=== PATIENT | male | born 1950 | race Caucasian/White ===

== ENCOUNTER → 2017-11-27 | Outpatient (CLI) | payer OTHER ==
[~2017-11-27] MED LIST: AMLODIPINE BESY10 MG PO; DICLOFENAC SOD50 M1 PO; LIPITOR 20 MG T20 M1 PO; MEDROLDOSEPACK PO; MICARDIS 20MG T20 M1 PO; NABUMETONE 500500 M1 PO; TELMISARTAN40 MG PO
[2017-11-27 11:03] LABS: HEMATOCRIT 39.3 % (42.0-52.0); HEMOGLOBIN 13.5 gm/dL (14.0-18.0); MCH 31.7 pg (26.0-34.0); MCHC 34.4 g/dL (28.0-37.0); MPV 7.5 fl. (7.2-11.1); RBC 4.27 mil/uL (4.50-6.00); RDW-CV 13.4 % (10.5-14.5); WBC 6.8 thou/uL (4.0-11.0)
[2017-11-27 11:16] LABS: ALBUMIN 4.3 g/dL (3.4-5.0); ALKALINE PHOSPHATASE 65 U/L (46-116); ANION GAP 9 mmol/L (7-16); BUN 13 mg/dL (7-18); CALCIUM 8.9 mg/dL (8.5-10.1); CHLORIDE 102 mmol/L (98-107); CHOLESTEROL 162 mg/dL (<200); CO2 30 mmol/L (21-32); CREATININE 0.9 mg/dL (0.6-1.3); GLUCOSE 93 mg/dL (70-99); HDL CHOLESTEROL 66 mg/dL (>40); LDL CHOLESTEROL 69 mg/dL (<100); POTASSIUM 4.1 mmol/L (3.5-5.1); SERUM ASSESSMENT Clear; SGOT 43 U/L (15-37); SGPT 62 U/L (30-65); SODIUM 141 mmol/L (136-145); TC:HDL 2.5 Ratio (Not establshd); TOTAL PROTEIN 7.3 g/dL (6.4-8.2); TRIGLYCERIDE 139 mg/dL (<150); VLDL 28 mg/dL (<40)
== END ==
LOC: M.LAB 10:48
PROVIDERS: General Practice
DX: Z12.5 Encounter for screening for malignant neoplasm of prostate (principal); Z00.00 Encounter for general adult medical examination without abnormal findings; I10 Essential (primary) hypertension

== ENCOUNTER 2018-07-18 14:13 | Emergency (ER) | payer OTHER ==
[~2018-07-18] VITALS: Ht 172.7 cm; Wt 95.3 kg
[~2018-07-18 14:13] MED LIST changes: -MICARDIS 20MG T20 M1 PO
[2018-07-18] MEDS ORDERED: LIPITOR 20 MG T20 M1 PO (14:30)
[2018-07-18] MEDS ORDERED: MICARDIS 20MG T20 M1 PO (14:31)
[2018-07-18 16:54] VITALS: BP 125/75
== END 2018-07-18 16:54 | disposition home or self-care (01) ==
LOC: M.ERS 14:13
DX: S82.831A Other fracture of upper and lower end of right fibula, initial encounter for closed fracture (principal); I10 Essential (primary) hypertension; E78.00 Pure hypercholesterolemia, unspecified; W18.39XA Other fall on same level, initial encounter; Y93.89 Activity, other specified; Y92.89 Other specified places as the place of occurrence of the external cause; Y99.8 Other external cause status

== ENCOUNTER → 2018-09-29 | Outpatient (CLI) | payer OTHER ==
[~2018-09-29] MED LIST changes: +MICARDIS 20MG T20 M1 PO
[2018-09-29 11:06] LABS: ABSOLUTE BASOPHILS 0.1 thou/uL (0.0-0.2); ABSOLUTE EOSINOPHILS 0.1 thou/uL (0.0-0.7); ABSOLUTE LYMPHOCYTES 1.5 thou/uL (0.8-5.3); ABSOLUTE MONOCYTES 0.5 thou/uL (0.0-1.2); ABSOLUTE NEUTROPHILS 5.4 thou/uL (1.6-8.1); BASOPHILS 0.8 %; EOSINOPHILS 0.9 %; HEMATOCRIT 43.9 % (42.0-52.0); HEMOGLOBIN 14.8 gm/dL (14.0-18.0); LYMPHOCYTES 20.2 %; MCHC 33.7 g/dL (28.0-37.0); MCV 89.2 fL (80.0-100.0); MONOCYTES 6.1 %; MPV 8.2 fl. (7.2-11.1); NUCLEATED RBCS 0 /100WBC; PLATELET COUNT* 208 thou/uL (150-400); RBC 4.92 mil/uL (4.50-6.00); RDW-CV 14.3 % (10.5-14.5); WBC 7.5 thou/uL (4.0-11.0)
[2018-09-29 11:21] LABS: ALBUMIN 4.4 g/dL (3.4-5.0); ALKALINE PHOSPHATASE 73 U/L (46-116); ANION GAP 9 mmol/L (7-16); BUN 13 mg/dL (7-18); CALCIUM 9.3 mg/dL (8.5-10.1); CHLORIDE 101 mmol/L (98-107); CHOLESTEROL 162 mg/dL (<200); CO2 29 mmol/L (21-32); GLUCOSE 99 mg/dL (70-99); HDL CHOLESTEROL 69 mg/dL (>40); LDL CHOLESTEROL 79 mg/dL (<100); POTASSIUM 3.9 mmol/L (3.5-5.1); SGOT 19 U/L (15-37); SGPT 26 U/L (30-65); SODIUM 139 mmol/L (136-145); TC:HDL 2.3 Ratio (Not establshd); TOTAL BILIRUBIN 1.3 mg/dL (<0.1-1.0); TOTAL PROTEIN 7.3 g/dL (6.4-8.2); TRIGLYCERIDE 71 mg/dL (<150); VLDL 14 mg/dL (<40)
[2018-09-29 11:50] LABS: SERUM ASSESSMENT Clear
== END ==
LOC: M.LAB 06:38
PROVIDERS: Family Medicine
DX: Z12.5 Encounter for screening for malignant neoplasm of prostate (principal); Z23 Encounter for immunization; E78.2 Mixed hyperlipidemia; I10 Essential (primary) hypertension

== ENCOUNTER → 2019-06-21 | Outpatient (CLI) | payer OTHER, MEDICARE ==
[2019-06-21 09:33] LABS: ABSOLUTE EOSINOPHILS 0.1 thou/uL (0.0-0.7); ABSOLUTE LYMPHOCYTES 1.1 thou/uL (0.8-5.3); ABSOLUTE MONOCYTES 0.6 thou/uL (0.0-1.2); ABSOLUTE NEUTROPHILS 5.3 thou/uL (1.6-8.1); BASOPHILS 0.5 %; EOSINOPHILS 1.1 %; HEMATOCRIT 41.7 % (42.0-52.0); HEMOGLOBIN 14.2 gm/dL (14.0-18.0); LYMPHOCYTES 15.1 %; MCV 91.1 fL (80.0-100.0); MPV 8.1 fl. (7.2-11.1); NUCLEATED RBCS 0 /100WBC; PLATELET COUNT* 200 thou/uL (150-400); POLYS 74.3 %; RBC 4.57 mil/uL (4.50-6.00); RDW-CV 13.7 % (10.5-14.5); WBC 7.2 thou/uL (4.0-11.0)
[2019-06-21 09:56] LABS: ALBUMIN 4.2 g/dL (3.4-5.0); ALKALINE PHOSPHATASE 62 U/L (46-116); ANION GAP 9 mmol/L (7-16); BUN 17 mg/dL (7-18); CHLORIDE 102 mmol/L (98-107); CHOLESTEROL 141 mg/dL (<200); CO2 29 mmol/L (21-32); GLUCOSE 103 mg/dL (70-99); HDL CHOLESTEROL 55 mg/dL (>40); LDL CHOLESTEROL 64 mg/dL (<100); SGOT 24 U/L (15-37); SGPT 47 U/L (30-65); SODIUM 140 mmol/L (136-145); TC:HDL 2.6 Ratio (Not establshd); TOTAL BILIRUBIN 1.1 mg/dL (<0.1-1.0); TOTAL PROTEIN 6.9 g/dL (6.4-8.2); TRIGLYCERIDE 113 mg/dL (<150); VLDL 23 mg/dL (<40)
[2019-06-21 09:57] LABS: SERUM ASSESSMENT Clear
== END ==
LOC: M.LAB 09:16
PROVIDERS: Family Medicine
DX: I10 Essential (primary) hypertension (principal); E78.2 Mixed hyperlipidemia

== ENCOUNTER → 2020-04-25 | Outpatient (CLI) | payer OTHER ==
[2020-04-25 06:28] LABS: ABSOLUTE EOSINOPHILS 0.1 thou/uL (0.0-0.7); ABSOLUTE LYMPHOCYTES 1.1 thou/uL (0.8-5.3); ABSOLUTE MONOCYTES 0.4 thou/uL (0.0-1.2); ABSOLUTE NEUTROPHILS 4.4 thou/uL (1.6-8.1); BASOPHILS 0.3 %; EOSINOPHILS 2.1 %; HEMATOCRIT 42.2 % (42.0-52.0); HEMOGLOBIN 14.9 gm/dL (14.0-18.0); LYMPHOCYTES 18.5 %; MCHC 35.4 g/dL (28.0-37.0); MCV 90.4 fL (80.0-100.0); MONOCYTES 7.1 %; NUCLEATED RBCS 0 /100WBC; PLATELET COUNT* 182 thou/uL (150-400); RBC 4.68 mil/uL (4.50-6.00); RDW-CV 13.8 % (10.5-14.5); WBC 6.1 thou/uL (4.0-11.0)
[2020-04-25 06:50] LABS: ALBUMIN 4.2 g/dL (3.4-5.0); ALKALINE PHOSPHATASE 58 U/L (46-116); ANION GAP 9 mmol/L (7-16); BUN 16 mg/dL (7-18); CALCIUM 8.6 mg/dL (8.5-10.1); CHLORIDE 104 mmol/L (98-107); CO2 27 mmol/L (21-32); GLUCOSE 113 mg/dL (70-99); POTASSIUM 4.6 mmol/L (3.5-5.1); SGOT 27 U/L (15-37); SGPT 43 U/L (30-65); SODIUM 140 mmol/L (136-145); TOTAL BILIRUBIN 0.8 mg/dL (<0.1-1.0); TOTAL PROTEIN 7.3 g/dL (6.4-8.2)
[2020-04-25 07:01] LABS: CHOLESTEROL 118 mg/dL (<200); HDL CHOLESTEROL 49 mg/dL (>40); LDL CHOLESTEROL 49 mg/dL (<100); TC:HDL 2.4 Ratio (Not establshd); TRIGLYCERIDE 101 mg/dL (<150); VLDL 20 mg/dL (<40)
[2020-04-25 07:02] LABS: SERUM ASSESSMENT Clear
[2020-04-26 03:06] LABS: GLYCOHEMOGLOBIN (HGB A1C) 5.5 % (4.8-5.6)
== END ==
LOC: M.LAB 06:07
PROVIDERS: ATTEND Family Medicine
DX: I10 Essential (primary) hypertension (principal); E78.2 Mixed hyperlipidemia

== ENCOUNTER → 2021-01-02 | Outpatient (CLI) | payer OTHER ==
[2021-01-02 06:35] LABS: ABSOLUTE EOSINOPHILS 0.1 thou/uL (0.0-0.7); ABSOLUTE LYMPHOCYTES 1.3 thou/uL (0.8-5.3); ABSOLUTE MONOCYTES 0.4 thou/uL (0.0-1.2); ABSOLUTE NEUTROPHILS 4.6 thou/uL (1.6-8.1); BASOPHILS 0.4 %; EOSINOPHILS 2.1 %; HEMATOCRIT 46.6 % (42.0-52.0); HEMOGLOBIN 15.8 gm/dL (14.0-18.0); LYMPHOCYTES 20.6 %; MCH 30.5 pg (26.0-34.0); MCHC 33.8 g/dL (28.0-37.0); MONOCYTES 6.8 %; NUCLEATED RBCS 0 /100WBC; PLATELET COUNT* 213 thou/uL (150-400); POLYS 70.1 %; RBC 5.18 mil/uL (4.50-6.00); RDW-CV 14.2 % (10.5-14.5); WBC 6.5 thou/uL (4.0-11.0)
[2021-01-02 06:47] LABS: ALBUMIN 4.4 g/dL (3.4-5.0); ALKALINE PHOSPHATASE 74 U/L (46-116); ANION GAP 9 mmol/L (7-16); BUN 12 mg/dL (7-18); CALCIUM 8.9 mg/dL (8.5-10.1); CHLORIDE 103 mmol/L (98-107); CHOLESTEROL 143 mg/dL (<200); CO2 28 mmol/L (21-32); GLUCOSE 117 mg/dL (70-99); HDL CHOLESTEROL 54 mg/dL (>40); LDL CHOLESTEROL 76 mg/dL (<100); POTASSIUM 4.4 mmol/L (3.5-5.1); SGOT 36 U/L (15-37); SGPT 68 U/L (30-65); SODIUM 140 mmol/L (136-145); TC:HDL 2.6 Ratio (Not establshd); TOTAL PROTEIN 7.8 g/dL (6.4-8.2); TRIGLYCERIDE 65 mg/dL (<150); VLDL 13 mg/dL (<40)
[2021-01-02 06:51] LABS: SERUM ASSESSMENT Clear
== END | disposition home or self-care (01) ==
LOC: M.LAB 06:05
PROVIDERS: ATTEND Family Medicine
DX: I10 Essential (primary) hypertension (principal); E78.2 Mixed hyperlipidemia

== ENCOUNTER → 2021-02-07 | Outpatient (CLI) | payer OTHER ==
[2021-02-08 03:06] LABS: GLYCOHEMOGLOBIN (HGB A1C) 5.8 % (4.8-5.6)
== END ==
LOC: M.LAB 05:26
PROVIDERS: ATTEND Family Medicine
DX: R73.9 Hyperglycemia, unspecified (principal)

== ENCOUNTER 2021-04-24 09:14 | Emergency (ER) | payer OTHER ==
[~2021-04-24] VITALS: Ht 172.7 cm; Wt 89.4 kg
[2021-04-24 10:07] VITALS: BP 110/63
[2021-04-24] MEDS ORDERED: DEXAMETHASONE 44 M1 PO (10:59)
== END 2021-04-24 10:08 | disposition home or self-care (01) ==
LOC: M.ERS 09:14
DX: U07.1 COVID-19 (principal); R05 Cough; R06.02 Shortness of breath; I10 Essential (primary) hypertension; E78.00 Pure hypercholesterolemia, unspecified; Z79.899 Other long term (current) drug therapy

== ENCOUNTER 2021-05-03 16:57 | Inpatient (IN) | payer OTHER ==
[~2021-05-03] VITALS: Ht 172.7 cm; Wt 89.4 kg
[~2021-05-03 16:57] MED LIST changes: +DEXAMETHASONE 44 M1 PO
[2021-05-03 17:06] VITALS: BP 100/61
[2021-05-03 18:01] LABS: BE -0.2 mmol/L (-2 to +3); PCO2 32.3 mmHg (35.0-45.0); PO2 73.3 mmHg (75.0-100.0); pH 7.464 (7.340-7.450)
[2021-05-03 18:14] LABS: ABSOLUTE EOSINOPHILS 0.2 thou/uL (0.0-0.7); ABSOLUTE LYMPHOCYTES 0.9 thou/uL (0.8-5.3); ABSOLUTE MONOCYTES 0.7 thou/uL (0.0-1.2); ABSOLUTE NEUTROPHILS 4.1 thou/uL (1.6-8.1); BASOPHILS 0.3 %; EOSINOPHILS 3.3 %; HEMATOCRIT 43.3 % (42.0-52.0); HEMOGLOBIN 14.4 gm/dL (14.0-18.0); LYMPHOCYTES 14.9 %; MCH 29.5 pg (26.0-34.0); MCHC 33.3 g/dL (28.0-37.0); MCV 88.8 fL (80.0-100.0); MONOCYTES 11.3 %; MPV 9.5 fl. (7.2-11.1); NUCLEATED RBCS 0 /100WBC; PLATELET COUNT* 205 thou/uL (150-400); POLYS 70.2 %; RBC 4.87 mil/uL (4.50-6.00); RDW-CV 14.3 % (10.5-14.5); WBC 5.9 thou/uL (4.0-11.0)
[2021-05-03 18:26] LABS: CALCIUM 8.1 mg/dL (8.5-10.1); CREATININE 0.9 mg/dL (0.6-1.3); POTASSIUM 4.1 mmol/L (3.5-5.1)
[2021-05-03 18:38] LABS: ALBUMIN 2.9 g/dL (3.4-5.0); TOTAL BILIRUBIN 0.7 mg/dL (<0.1-1.0); TOTAL PROTEIN 6.7 g/dL (6.4-8.2)
[2021-05-03 22:00] VITALS: BP 105/62
[2021-05-03 22:25] VITALS: BP 107/57
[2021-05-04 05:05] VITALS: BP 100/57
--- NOTE | 2021-05-04 05:38 | NUR ---
REPORT RECIEVED FROM ER. PT ORIENTED TO ROOM, CALL LIGHT SHOWN, FALL AGREEMENT WENT OVER, PT STATED UNDERSTANDING. PT O2 SATS GOOD ON ROOM AIR WHILE AWAKE, BUT DESATS WHEN SLEEPING INTO MID 80'S% REQUIRING 4L NC TO KEEP SATS GREATER THAN 90%. NO REPORTS OF PAIN. ADMISSION DOCUMENTED. PT ABLE TO MAKE NEEDS KNOWN. WILL CONTINUE WITH PLAN OF CARE.
[2021-05-04 08:00] VITALS: BP 108/64
--- NOTE | 2021-05-04 09:24 | EKG ---
[place] [address] ELECTROCARDIOGRAM REPORT Name: GOPI MCADAMS Room: [address] ADM IN .R.#: [id number] Admission: 05/03/21 Attend Phys: Jose Valencia Discharge: Date of : 54 Date of Service: 05/03/21 1754 Report #: [id number] THIS REPORT FOR: //name// [facility] ED Test Date: 2021-05-03 Test Time: 17:54:26 Pat Name: GOPI MCADAMS Department: Room: [facility] Gender: M Weld Inspector: LULU : 1950 Requested By: Yosvany Penaloza Order Number: [id number] MD: Vicente Awan Measurements Intervals [place] Rate: 90 P: 50 WV: 156 QRS: -1 QRSD: 101 T: 8 QT: 369 QTc: 452 Interpretive Statements Sinus rhythm Compared to ECG 05/25/2016 16:31:38 no change Electronically Signed On 05-04-2021 9:24:41 CDT by Vicente Awan [email or web address] <ELECTRONICALLY SIGNED> By: Vicente Awan MD, [facility] 05/04/21 0924 1754 1754 Vicente Awan MD, [facility] /EPI
[2021-05-04] MEDS ORDERED: DEXAMETHASONE 22 M1 PO (12:18)
[2021-05-04] MEDS ORDERED: DOXYCYCLINE 10100 M2 PO (12:18)
[2021-05-04 12:19] VITALS: BP 122/64
[2021-05-04 15:56] VITALS: BP 122/64
--- NOTE | 2021-05-04 18:48 | NUR ---
pt. aox4, vss, denies pain or discomfort. call light and personal belongings placed within reach. DC packet provided and explained. pt. verbalized understanding. pt. requested a letter to be excused from work as PCR pending. Spoke to Johann Last, who will call with results to pt. when received. pt. left by wheelchair with aide, picket up by spouse by car. pt. in stable condition at time of leaving unit.
== END 2021-05-04 16:04 | disposition home health service (06) | DRG 177 ==
LOC: M.ERS 16:57 → M.ORTHSURG 18:54 → M.TBA-ER 18:54 → M.ORTHSURG 22:05
PROVIDERS: Emergency Medicine Emergency Medical Services; ADMIT Internal Medicine; ATTEND Internal Medicine
DX: U07.1 COVID-19 (principal); J96.01 Acute respiratory failure with hypoxia; J12.82 Pneumonia due to coronavirus disease 2019; E78.5 Hyperlipidemia, unspecified; I10 Essential (primary) hypertension; E78.00 Pure hypercholesterolemia, unspecified; Z87.891 Personal history of nicotine dependence

== ENCOUNTER → 2021-05-29 | Outpatient (CLI) | payer OTHER, MEDICARE ==
[~2021-05-29] MED LIST changes: +DEXAMETHASONE 22 M1 PO; +DOXYCYCLINE 10100 M2 PO
[2021-05-29 06:27] LABS: ABSOLUTE EOSINOPHILS 0.1 thou/uL (0.0-0.7); ABSOLUTE LYMPHOCYTES 1.1 thou/uL (0.8-5.3); ABSOLUTE MONOCYTES 0.3 thou/uL (0.0-1.2); ABSOLUTE NEUTROPHILS 4.1 thou/uL (1.6-8.1); BASOPHILS 0.5 %; EOSINOPHILS 2.3 %; HEMATOCRIT 40.6 % (42.0-52.0); HEMOGLOBIN 13.6 gm/dL (14.0-18.0); LYMPHOCYTES 19.4 %; MCH 30.2 pg (26.0-34.0); MCHC 33.5 g/dL (28.0-37.0); MONOCYTES 5.9 %; MPV 8.3 fl. (7.2-11.1); NUCLEATED RBCS 0 /100WBC; PLATELET COUNT* 140 thou/uL (150-400); POLYS 71.9 %; RBC 4.51 mil/uL (4.50-6.00); RDW-CV 14.8 % (10.5-14.5); WBC 5.7 thou/uL (4.0-11.0)
[2021-05-29 07:07] LABS: ALBUMIN 3.9 g/dL (3.4-5.0); ALKALINE PHOSPHATASE 75 U/L (46-116); ANION GAP 9 mmol/L (7-16); BUN 10 mg/dL (7-18); CALCIUM 8.7 mg/dL (8.5-10.1); CHLORIDE 106 mmol/L (98-107); CHOLESTEROL 123 mg/dL (<200); CO2 28 mmol/L (21-32); CREATININE 0.8 mg/dL (0.6-1.3); GLUCOSE 82 mg/dL (70-99); HDL CHOLESTEROL 53 mg/dL (>40); LDL CHOLESTEROL 56 mg/dL (<100); POTASSIUM 3.9 mmol/L (3.5-5.1); SGOT 23 U/L (15-37); SGPT 44 U/L (30-65); SODIUM 143 mmol/L (136-145); TC:HDL 2.3 Ratio (Not establshd); TOTAL BILIRUBIN 0.8 mg/dL (<0.1-1.0); TOTAL PROTEIN 6.7 g/dL (6.4-8.2); TRIGLYCERIDE 72 mg/dL (<150); VLDL 14 mg/dL (<40)
[2021-05-29 07:08] LABS: SERUM ASSESSMENT Clear
[2021-05-29 07:28] LABS: ESR (SEDRATE) 7 mm/hr (0-20)
[2021-05-29 22:06] LABS: GLYCOHEMOGLOBIN (HGB A1C) 6.1 % (4.8-5.6)
== END ==
LOC: M.LAB 05:30
PROVIDERS: ATTEND Family Medicine
DX: U07.1 COVID-19 (principal); E78.2 Mixed hyperlipidemia; I10 Essential (primary) hypertension; R73.03 Prediabetes